=== PATIENT | female | born 1990 | race Caucasian/White ===

== ENCOUNTER → 2020-04-07 | Outpatient (REF) | payer OTHER | LOC: M PLALAB 09:39 | PROVIDERS: ATTEND Obstetrics & Gynecology | DX: Z01.419 Encounter for gynecological examination (general) (routine) without abnormal findings (principal) ==

== ENCOUNTER 2021-12-28 04:11 | Outpatient (CLI) | payer OTHER ==
[~2021-12-28] VITALS: Ht 157.5 cm; Wt 65.3 kg
[2021-12-28 04:35] VITALS: BP 100/65
[2021-12-28] MEDS ORDERED: ZOLO50TA PO (04:38)
[2021-12-28] MEDS ORDERED: PRENTAB9 PO (04:38)
[2021-12-28] MEDS ORDERED: TUMS500C PO (04:38)
[2021-12-28] MEDS ORDERED: HOME MED LIST COMPLETE! XX SCH (04:40)
[2021-12-28 05:47] VITALS: BP 97/62
== END 2021-12-28 05:55 | disposition home or self-care (01) ==
LOC: M LDO 04:11
PROVIDERS: ATTEND Obstetrics & Gynecology
DX: O99.893 Other specified diseases and conditions complicating puerperium (principal); N93.0 Postcoital and contact bleeding; Z3A.38 38 weeks gestation of pregnancy; O36.8130 Decreased fetal movements, third trimester, not applicable or unspecified
CPT/HCPCS: 59025; 76815; G0463

== ENCOUNTER 2022-01-11 07:30 | Inpatient (IN) | payer OTHER ==
[2022-01-11] VITALS (33 sets, daily range): BP systolic 102–153; BP diastolic 55–96
[~2022-01-11] VITALS: Ht 157.5 cm; Wt 64.3 kg
[~2022-01-11 07:30] MED LIST: PRENTAB9 PO; TUMS500C PO; ZOLO50TA PO
[2022-01-11] MEDS ORDERED: HOME MED LIST COMPLETE! XX SCH (07:55)
[2022-01-11] MEDS ORDERED: METHYLERGONOVINE MALEATE 0.2 MG/ML VIAL (J2210) IM PRN (08:40)
[2022-01-11] MEDS ORDERED: OXYTOCIN DRIP 30 UNITS in IV 1 EA IV PRN ×4 (08:40)
[2022-01-11] MEDS ORDERED: CARBOPROST TROMETHAMINE 250 MCG/ML AMP IM PRN (08:40)
[2022-01-11] MEDS ORDERED: TRANEXAMIC ACID INJection 1,000 MG in NS 100 ML IV PRN (08:40)
[2022-01-11] MEDS ORDERED: LIDOCAINE 1% MDV 20ML VIAL INFIL PRN (08:40)
[2022-01-11 09:26] LABS: HEMATOCRIT 34.9 % (36.0-47.0); HEMOGLOBIN 11.7 g/dl (12.0-15.5); MEAN CORPUSCULAR HEMOGLOBIN 29.2 pg (27.0-33.0); MEAN CORPUSCULAR HGB CONC 33.5 g/dl (32.0-36.5); PLATELET COUNT, AUTOMATED 239 10^3/uL (150-450); RED BLOOD COUNT 4.01 10^6/uL (4.00-5.40); WHITE BLOOD COUNT 10.6 10^3/uL (4.0-10.0)
[2022-01-11] MEDS ORDERED: FENTANYL/ROPIVACAINE/NACL BAG 100 ML EPIDURAL SCH ×2 (09:55→18:35)
[2022-01-11] MEDS ORDERED: ONDANSETRON 4MG 2ML VIAL IV PRN (09:55)
[2022-01-11] MEDS ORDERED: LR 500 ML IV PRN (09:55)
[2022-01-11] MEDS ORDERED: NALOXONE INJ 0.4MG/1ML VIAL (J2310 PER 1MG) IV PRN (09:55)
[2022-01-11] MEDS ORDERED: EPIDURAL/PCA KEYS XX PRN ×2 (09:55→18:35)
[2022-01-11] MEDS ORDERED: diphenhydrAMINE 50MG/ML VIAL (J1200) IV PRN (09:55)
[2022-01-11] MEDS ORDERED: ePHEDrine SULFATE 25 MG/5 ML(5MG/ML) SYRINGE IVP PRN (09:55)
[2022-01-11] MEDS: LR 1,000 ML IV SCH ×2 (10:18→16:40)
[2022-01-11] MEDS ORDERED: OXYTOCIN DRIP 30 UNITS in IV 1 EA IV SCH (11:10)
[2022-01-11 13:07] LABS: GLUCOSE,RANDOM 64 MG/DL (LESS THAN 200)
[2022-01-11 20:19] LABS: CORD GAS ABE A -9.7; CORD GAS HCO3 A 18.7 MEQ/L; CORD GAS O2 SAT A 42.3 %; CORD GAS PCO2 A 50.5 mmHg; CORD GAS PH A 7.186 UNITS; CORD GAS PO2 A 22.5 mmHg; CORD GAS SBC A 15.7 MEQ/L; CORD GAS TCO2 A 20.2 MEQ/L
[2022-01-11 20:19] LABS: CORD GAS ABE V -7.6; CORD GAS HCO3 V 18.2 MEQ/L; CORD GAS O2 SAT V 70.6 %; CORD GAS PCO2 V 38.1 mmHg; CORD GAS PH V 7.297 UNITS; CORD GAS PO2 V 32.4 mmHg; CORD GAS SBC V 17.8 MEQ/L; CORD GAS TCO2 V 19.4 MEQ/L
[2022-01-11] MEDS ORDERED: DIBUCAINE 1% OINTMENT 30GM TOP PRN (21:30)
[2022-01-11] MEDS ORDERED: RHOGAM 300 MCG (1500 IU) INJ (J2790) IM SCH (21:30)
[2022-01-11] MEDS ORDERED: MOM 30ML SUSPENSION UDC PO PRN (21:30)
[2022-01-11] MEDS ORDERED: DOCUSATE SODIUM 100MG CAPSULE PO PRN (21:30)
[2022-01-11] MEDS ORDERED: IBUPROFEN 800 MG TAB PO PRN (21:30)
[2022-01-12] VITALS: BP 103/59
[2022-01-12] MEDS: ACETAMINOPHEN 500 MG TAB PO PRN ×2 (00:05→19:36)
[2022-01-12 06:00] VITALS: BP 95/55
[2022-01-12] MEDS ORDERED: PRENATAL VITAMINS CHEWABLE TABLET PO SCH (09:00)
[2022-01-12] MEDS ORDERED: SERTRALINE HCL 50 MG TAB PO SCH (09:00)
[2022-01-12 18:00] VITALS: BP 97/54
[2022-01-12] MEDS ORDERED: IBUP80TA PO (19:45)
[2022-01-12] MEDS ORDERED: ACET-683 PO (19:45)
[2022-01-12] MEDS ORDERED: COLA100C5 PO (19:45)
[2022-01-13] MEDS ORDERED: MEASLES,MUMPS,RUBELLA VACCINE INJ (MMR-II) (90707) SC.IMMUN ONE (09:00)
== END 2022-01-12 20:45 | disposition home or self-care (01) | DRG 807 ==
LOC: M LDO 07:30 → M LDI 08:55 → M OBS 01-12 06:40
PROVIDERS: ADMIT Advanced Practice Midwife; ATTEND Advanced Practice Midwife
PROC: 10D07Z6 Extraction of Products of Conception, Vacuum, Via Natural or Artificial Opening (ICD-10-PCS; principal; 2022-01-11)
PROC: 0KQM0ZZ Repair Perineum Muscle, Open Approach (ICD-10-PCS; 2022-01-11)
DX: O24.410 Gestational diabetes mellitus in pregnancy, diet controlled (principal); Z37.0 Single live birth; Z3A.39 39 weeks gestation of pregnancy; F41.9 Anxiety disorder, unspecified; O99.344 Other mental disorders complicating childbirth; O75.81 Maternal exhaustion complicating labor and delivery; O70.1 Second degree perineal laceration during delivery; O99.824 Streptococcus B carrier state complicating childbirth